=== PATIENT | male | born 1970 | race Caucasian/White ===

== ENCOUNTER → 2017-02-04 | Outpatient (CLI) | payer OTHER ==
[~2017-02-04] MED LIST: CLX/20 PO; GABA1CAP4 PO; GLC500 PO; GLIM2TAB2 PO; HYDR-5688 PO; LPD600 PO; ULT50X PO
[2017-02-04 17:29] LABS: HEMATOCRIT 42.7 % (42-52); MEAN CORPUSCULAR HEMOGLOBIN 30.8 pg (25-34); MEAN CORPUSCULAR HGB CONC 35.4 g/dl (32-36); MEAN PLATELET VOLUME 9.5 fL (7.4-10.4); PLATELET COUNT 278 K/uL (130-400); RED BLOOD COUNT 4.91 M/uL (4.7-6.1); WHITE BLOOD COUNT 6.72 K/uL (4.8-10.8)
[2017-02-04 17:47] LABS: ALT/SGPT 32 U/L (12-78); AST/SGOT 20 U/L (15-37); BLOOD UREA NITROGEN 13 mg/dl (7-18); BUN/CREATININE RATIO 12.7 (10-20); CALCIUM 8.9 mg/dl (8.5-10.1); CARBON DIOXIDE 25 mmol/L (21-32); CHLORIDE 100 mmol/L (98-107); CHOLESTEROL 152 mg/dl (0-200); CREATININE 1.04 mg/dl (0.60-1.40); GLUCOSE 213 mg/dl (70-99); POTASSIUM 4.1 mmol/L (3.5-5.1); SODIUM 134 mmol/L (136-145)
[2017-02-04 17:58] LABS: ALB/GLOB RATIO 1.2 (0.9-2); ALKALINE PHOSPHATASE 85 U/L (45-117); HDL CHOLESTEROL 38 mg/dl; LDL CHOLESTEROL CALCULATED 43 mg/dl; TRIGLYCERIDES 354 mg/dl (0-150); VERY LOW DENSITY LIPOPROT CALC 71 mg/dl
[2017-02-04 18:29] LABS: RATIO 16.7 mcg/mg (0-30.0)
[2017-02-05 06:02] LABS: ESTIMATED AVERAGE GLUCOSE 232 mg/dl; HA1C FLAG Normal (Normal)
== END | disposition home or self-care (01) ==
LOC: C.LABBFT 13:17
PROVIDERS: ATTEND Internal Medicine
DX: E11.9 Type 2 diabetes mellitus without complications (principal)

== ENCOUNTER 2019-09-20 06:54 | Observation (INO) ==
--- NOTE | 2019-08-31 15:12 | Anesthesiology Consultation ---
Date of Service August 31, 2019 Assessment & Plan (1) Encounter for pre-operative examination: Chart Review Chart Review: Acceptable Risk for Surgery and Patient NOT seen in Pre Admission Testing Left Shoulder Arthroscopy 01/11/16= Done under GA- Grade 2 view with Glidescope #4. ETT #8.0. History Surgery Operation Date: 09/20/19 07:00 Proposed Procedures p Bilateral Total Knee Replacement - Jer Gallegos MD Height/Weight Height: 6 ft 3 in Weight: 143.335 kg Allergies Allergy/AdvReac Type Severity Reaction Status Date / Time adhesive tape Allergy Intermediate skin Verified 08/22/19 10:58 reaction bee venom protein (honey bee) Allergy Intermediate SEVERE Verified 08/22/19 10:58 NAUSEA, DIZZY chlorhexidine Allergy Intermediate blisters Verified 08/22/19 10:58 Medications Home Medications Medication Instructions Recorded Confirmed Last Taken dulaglutide 1.5 mg/0.5 mL 1.5 mg SQ WEEKLY #2 ml 01/27/19 08/22/19 Unknown subcutaneous pen injector gemfibrozil 600 mg tablet 600 mg PO BID #180 tab 04/11/19 08/22/19 Unknown diclofenac sodium 75 mg 75 mg PO BID #60 tab 04/22/19 08/22/19 Unknown tablet,delayed release blood sugar diagnostic #10 ea 05/20/19 08/22/19 Unknown buspirone 10 mg tablet 10 mg PO QAM tab 07/21/19 08/22/19 Unknown gabapentin 300 mg capsule 600 mg PO BID #180 cap 08/01/19 08/22/19 Unknown duloxetine 30 mg PO QAM 08/02/19 08/22/19 Unknown duloxetine 60 mg PO QAM 08/02/19 08/22/19 Unknown Basaglar KwikPen U-100 Insulin 100 30 units SQ DAILY #15 ml NS 08/05/19 08/22/19 Unknown unit/mL (3 mL) subcutaneous Wheeled Walker #1 ea 08/22/19 08/22/19 Unknown empagliflozin 10 mg tablet 10 mg PO HS #90 tab 08/29/19 Unknown Past Medical History Medical History Anxiety and depression Degenerative arthritis of knee, bilateral Degenerative disc disease Diabetes mellitus, type 2 High triglycerides History of skin cancer Post traumatic stress disorder RELATED TO BACK SURGERY "RELATED TO BREATHING TUBE AND AWARENESS/COMBATIVE" Sleep apnea CPAP DEVICE Past Family History Family History Mother Cancer Diabetes Malignant melanoma Aunt Cancer Malignant melanoma Father Generalized anxiety disorder Family/Other Diabetes Uncle Obstructive sleep apnea, adult Brother Benign adenomatous polyp of large intestine Other Heart disease Hyperlipemia Hypertension Skin cancer Past Surgical History Surgical History Difficult airway for intubation WAS TOLD DURING ONLY 1 BACK SURGERY (NEVER HAD PROBLEMS WITH ALL OTHER SURGERIES) Family history of reaction to anesthesia MOTHER-N/V Fusion of spine LUMBAR AREA (TOTAL OF 4 SURGERIES) History of appendectomy History of arthroscopy RT/LEFT KNEE History of back surgery History of colonoscopy History of incision and drainage LUMBAR SPINE History of knee surgery History of shoulder surgery LEFT History of tooth extraction Hx of vasectomy S/P skin biopsy Social History Smoking Status: Never smoker Do You Dip or Chew Tobacco: No Hx Alcohol Use: Yes Alcohol type: beer alcohol intake frequency: holidays/special occasions only Hx Substance Use: No substance use type: does not use Testing Laboratory Results Laboratory Tests 08/22/19 08/22/19 08/22/19 11:51 11:51 11:51 WBC 7.61 Hgb 16.9 Hct 47.4 Plt Count 218 PT 10.3 INR 1.0 APTT 26.5 Sodium 140 Potassium 4.4 Chloride 107 Carbon Dioxide 27 BUN 17 Creatinine 1.10 Glucose 164 H Hemoglobin A1c 08/22/19 11:51 WBC Hgb Hct Plt Count PT INR APTT Sodium Potassium Chloride Carbon Dioxide BUN Creatinine Glucose Hemoglobin A1c 6.2 H Electrocardiogram Date: 08/22/19 Findings: + NSR @ (99) Nondiagnostic inferior Q waves. When compared to EKG from November 06, 2017, criteria for inferior infarct are no longer present. Otherwise no significant change per cardio Chest X-Ray Date: 08/22/19 Findings: + NAD Stress Test Date: 01/04/16 Type: exercise (Stress ECHO ) Resting EF: 55-60% Resting LV Function: normal Resting RWMA: + none Valvular Disease: no significant valvular disease Negative stress ECHO for myocardial ischemia at 88% MPHR. Normal EKG/ECHO response to stress. Mild/concentric LVH. RV- mild to moderately dilated. LA moderately dilated. RA mildly dilated.
[~2019-09-20 06:54] MED LIST changes: +ACETAMINOPHEN 500 MG TAB PO SCH; +BUPIVACAINE LIPOSOME/PF 266 MG, BUPIVACAINE/EPINEPHRINE 50 ML, SODIUM CHLORIDE 0.9% 30 ... INFIL SCH; +CEFAZOLIN 3000MG 72.5 ML IV SCH; -CLX/20 PO; +FAMOTIDINE 20 MG TAB PO SCH; -GABA1CAP4 PO; +GABAPENTIN 900 MG DOSE PO SCH; -GLC500 PO; -GLIM2TAB2 PO; -HYDR-5688 PO; -LPD600 PO; +LR 500ML BOLUS, THEN 15ML/HR IV SCH; +LR 60ML/HR IV SCH; +METOCLOPRAMIDE HCL 10 MG TABLET PO SCH; +SCOPOLAMINE 1.5 MG TDSY TD SCH; +TRANEXAMIC ACID 1,000 MG **IV Intra-op IV SCH; -ULT50X PO
[2019-09-20] MEDS ORDERED: fentaNYL citrate 100 MCG/2 ML VIAL ONE ×2 (07:05→11:45)
[2019-09-20] MEDS ORDERED: MIDAZOLAM HCL 1 MG/ML 2ML VIAL ONE ×2 (07:05→10:23)
[2019-09-20] MEDS ORDERED: BUPIVACAINE 0.25% 30 ML VIAL ONE (07:32)
[2019-09-20] MEDS ORDERED: BUPIVACAINE 0.5 % 5 MG/1 ML PF 10ML VIAL ONE (07:32)
[2019-09-20] MEDS ORDERED: ONDANSETRON INJ 2 MG/ML 2 ML VIAL IV PRN ×2 (08:36→13:42)
[2019-09-20] MEDS ORDERED: ATROPINE SULFATE 0.1 MG/ML 10ML SYR IV PRN (08:36)
[2019-09-20] MEDS ORDERED: ePHEDrine sulfate 50 MG/ML AMP IV PRN (08:36)
[2019-09-20] MEDS ORDERED: fentaNYL citrate 100 MCG/2 ML VIAL IV PRN (08:36)
[2019-09-20] MEDS ORDERED: SODIUM CHLORIDE 0.9% PF 50 ML VIAL ONE (08:43)
[2019-09-20] MEDS ORDERED: BUPIVACAINE/EPINEPHRINE 0.25% 1:200,000 30 ML VIAL ONE (08:43)
[2019-09-20] MEDS ORDERED: BUPIVACAINE LIPOSOME 1.3% 266 MG/20 ML VIAL ONE (08:44)
[2019-09-20] MEDS ORDERED: BACITRACIN INJ 50,000 UNIT VIAL ONE ×2 (08:44→09:03)
--- NOTE | 2019-09-20 08:45 | History & Physical Bridge Note ---
Date of Service September 20, 2019 History & Physical Bridge Note I have examined the patient, reviewed the History & Physical and in the interval since the performance of the History & Physical I have noted the following changes of clinical significance: no changes noted
[2019-09-20] MEDS ORDERED: PROPOFOL IV EMULSION 10 MG/ML 20 ML VIAL IV ONE ×3 (09:15→10:55)
--- NOTE | 2019-09-20 12:39 | Post Operative Brief Note ---
PG Immediate Post Op with CF Date of Surgery September 20, 2019 Pre & Post Diagnosis Operation Date: 09/20/19 08:50 Pre-Op Diagnosis: Bilateral Knee Degenerative Joint Disease Post-Op Diagnosis: Bilateral Knee Degenerative Joint Disease I identified the patient and participated in the time-out.: Yes Procedure Operation Date: 09/20/19 08:50 Actual Procedures p Bilateral Total Knee Replacement(Bilateral) - Jer Gallegos MD Surgeon Jer Gallegos MD Spooler Rubber Strand Zeke, PAC Estimated Blood Loss 100 Findings Consistent with Post-Op Diagnosis Fluids 1500 cc Specimens Specimen Description: Permanent A: Left Knee Bone and Tissue B: Right Knee Bone and Tissue Drains Ellison Catheter (inserted by Cali Alanis PA-C after anesthesia prior to start of procedure without difficulty) Anesthesia Type Spinal MAC Complications none Disposition Accompanied Patient To Recovery: Yes Disposition: Recovery Room
--- NOTE | 2019-09-20 13:14 | XRay Report ---
XR knee RT 1 or 2V routine CLINICAL HISTORY: Surgical Post Op postoperative evaluation COMPARISON: None. DISCUSSION: Anatomic alignment posttotal right knee arthroplasty. Could contact between prosthetic an d underlying bone. Expected postoperative soft tissue change. IMPRESSION: Anatomic alignment posttotal right knee arthroplasty. ACT 112: Negative or not required by law. The above report was generated using voice recognition software. It may contain grammatical, syntax or spelling errors. Electronically signed by: Graeme Burgess M.D. 09/20/2019 1:13 PM
--- NOTE | 2019-09-20 13:15 | XRay Report ---
LEFT KNEE 2 VIEWS History: Left total knee arthroplasty. Degenerative arthritis. Postop. FINDINGS: The patient is status post a left total knee arthroplasty. The hardware is intact. No fract ure or dislocation. Skin bev are in place. IMPRESSION: Left total knee arthroplasty. No evidence for hardware complication. ACT 112: Negative or not required by law. Electronically signed by: Andrew Ornelas M.D. 09/20/2019 1:13 PM
[2019-09-20] MEDS ORDERED: PNEUMOCOCCAL POLYSACCHARIDES 25 MCG/0.5 ML VIAL/SYR IM ONE (13:41)
[2019-09-20] MEDS ORDERED: INFLUENZA ADMINISTRATION CHARGE ONE (13:41)
[2019-09-20] MEDS ORDERED: PNEUMOCOCCAL ADMINISTRATION CHARGE ONE (13:41)
[2019-09-20] MEDS ORDERED: INFLUENZA VIRUS QUAD VACCINE 0.5 ML SYR IM ONE (13:41)
[2019-09-20] MEDS ORDERED: DEXTROSE 50% 50 ML SYRINGE IV PRN (13:42)
[2019-09-20] MEDS ORDERED: METOCLOPRAMIDE HCL INJ 5 MG/ML 2 ML VIAL IV PRN (13:42)
[2019-09-20] MEDS ORDERED: TAMSULOSIN HCL 0.4 MG CAP PO PRN (13:42)
[2019-09-20] MEDS ORDERED: bisacodyL 10 MG SUPP PR PRN (13:42)
[2019-09-20] MEDS ORDERED: BLOOD SUGAR DIAGNOSTIC SCH (13:42)
[2019-09-20] MEDS ORDERED: GLUCAGON FOR INJ 1 MG VIAL SQ PRN (13:42)
[2019-09-20] MEDS ORDERED: MAGNESIUM HYDROXIDE SUSP 30 ML UDC PO PRN (13:42)
[2019-09-20] MEDS ORDERED: GLUCOSE 40% GEL 15 GM TUBE PO PRN (13:42)
[2019-09-20] MEDS ORDERED: GLUCOSE 10 TABS/TUBE PO PRN (13:42)
[2019-09-20] MEDS ORDERED: SODIUM CHLORIDE 0.9% 1000ML 1,000 ML IV SCH (13:42)
[2019-09-20] MEDS ORDERED: NON-FORMULARY MEDICATION (Dulaglutide [Trulicity] 1.5 MG) SQ SCH (13:42)
[2019-09-20] MEDS ORDERED: CARBOHYDRATES FOR HYPOGLYCEMIA PO PRN (13:42)
[2019-09-20] MEDS ORDERED: ALUMINUM/MAGNESIUM SUSP 30 ML UDC PO PRN (13:42)
[2019-09-20] MEDS ORDERED: NALOXONE HCL 0.4 MG/1 ML VIAL/CARP IV PRN (13:42)
[2019-09-20] MEDS ORDERED: PHARMACY GLYCEMIC MGMT CONSULT PRN (14:11)
[2019-09-20] MEDS: INSULIN ASPART 100 UNITS/ML 3 ML PEN SC SCH ×2 (14:48→21:19)
--- NOTE | 2019-09-20 14:55 | Anesthesiology Progress Note ---
Date of Service September 20, 2019 Anesthesia Post Procedure Vital Signs Vital Signs: Temp Pulse Pulse Resp BP Pulse Ox 09/20/19 14:25 97.9 F 84 16 144/91 H 97 09/20/19 13:50 97.5 F L 66 16 114/79 93 09/20/19 13:27 97.3 F L 81 18 120/83 97 09/20/19 13:05 98.8 F 67 16 122/81 94 09/20/19 12:55 98.8 F 76 17 119/84 93 09/20/19 12:45 70 20 127/80 93 09/20/19 12:35 98.1 F 81 14 121/83 98 09/20/19 07:25 99.0 F 93 H 20 141/98 H 94 Transfer of Care Handoff Completed per policy Notes Mental Status: alert / awake / arousable and participated in evaluation Patient Amnestic to Procedure: Yes Nausea / Vomiting: adequately controlled Pain: adequately controlled Airway Patency, RR, SpO2: stable & adequate BP & HR: stable & adequate Hydration State: stable & adequate Neuraxial Anesthesia: was administered and sensory block is resolving Anesthetic Complications: no major complications apparent and Pt Satisfied with anesthetic care
--- NOTE | 2019-09-20 15:06 | Pharmacy Report ---
Pharmacy Glycemic Short Note 2 - Date of Service September 20, 2019 - Glycemic Short BSG Results (Last 24 hours): 09/20/19 09/20/19 09/20/19 07:13 12:38 13:56 POC Glucose 139 H 109 H 120 H OUTPATIENT ANTIDIABETIC REGIMEN: * Insulin Basaglar 36 units SQ qHS * Jardiance * Trulicity * HbA1c: 6.2% (08/22/19) ASSESSMENT: * Mr Hawley is a 49yo diabetic male POD 0 s/p B/L TKA. * It does not appear as though patient received any steroids barbra-operatively. Pt is ordered Ancef. * Patient is ordered a diabetic diet post-op. * Patient ordered Novolog on admission, while oral agents are on hold. PLAN FOR INPATIENT GLYCEMIC CONTROL: * Hold outpatient oral diabetes medications * Basal insulin * Lantus 36 units SQ qHS * Bolus insulin * NovoLog per scale ACHS or Q6hrs while NPO * Goal Range: Low 120 mg/dL - High 150 mg/dL * Correction Factor: 20 mg/dL/unit * Nutritional / Prandial insulin per carb ratio of 1 unit per 7 grams CHO consumed PLAN FOR DISCHARGE: * Recent A1c indicates good glycemic control as an outpatient. * Anticipate that pt may resume home regimen on discharge, as long as he does not report having episodes of hypoglycemia.
[2019-09-20] MEDS: KETOROLAC 30 MG/ML VIAL IV SCH ×2 (15:10→21:15)
[2019-09-20] MEDS: ACETAMINOPHEN 500 MG TAB PO SCH ×2 (15:10→21:15)
[2019-09-20] MEDS: CHECK SCOPOLAMINE PATCH PLACEMENT SCH (15:11)
--- NOTE | 2019-09-20 15:49 | Progress Notes ---
DATE: 09/20/2019 SUBJECTIVE: A 49-year-old gentleman postop from bilateral knee replacement. He is doing pretty well. His spinal is slowly wearing off, but does not have any sensation or function in his legs yet. No chest pain or shortness of breath. Not feeling dizzy or lightheaded. OBJECTIVE: VITAL SIGNS: Temperature 36.8. Vital signs are stable. GENERAL: Reveals a large middle-aged male. He is lying in bed, looks pretty comfortable. LUNGS: Clear to auscultation. HEART: Has a regular rate and rhythm. ABDOMEN: Soft, nontender, nondistended. EXTREMITIES: Grossly neurovascularly intact except as follows: Examination of both legs reveals the legs to be well aligned. Dressings are clean, dry, and intact. He has no significant sensory or motor function below the knees yet. He does have brisk refill with good pulses distally on both sides. X-RAYS: X-rays of both knees from recovery room are reviewed. It shows bilateral cemented posterior stabilized total knee arthroplasties. Fairly rotated films. Components looked to be in acceptable position without signs of obvious problems. ASSESSMENT: A 49-year-old gentleman postoperative from bilateral knee replacements, doing well. Spinal is still in effect. His pain is controlled. PLAN: 1. DVT prophylaxis including thigh-high TEDs, SCDs, and aspirin twice a day. 2. PT/OT. Weight bear as tolerated. Bilateral total knee protocol. 3. Pain control, doing okay with current pain regimen. We will obviously have to adjust his meds as his spinal wears off. The plan currently is to use Tylenol, Toradol, Dilaudid as needed. 4. IV antibiotics x24 hours. 5. Disposition: He is planning to be discharged to home with some home health once adequately recovered and medically stable.
--- NOTE | 2019-09-20 17:24 | Operative Report ---
Post Operative Report Pre & Post Diagnosis Operation Date: 09/20/19 08:50 Pre-Op Diagnosis: Bilateral Knee Degenerative Joint Disease Post-Op Diagnosis: Bilateral Knee Degenerative Joint Disease I identified the patient and participated in the time-out.: Yes Procedure Operation Date: 09/20/19 08:50 Actual Procedures p Bilateral Total Knee Replacement(Bilateral) - Jer Gallegos MD Surgeon Jer Gallegos MD Flat Optical Element Maker Zeke, PAC Estimated Blood Loss 100 Findings Consistent with Post-Op Diagnosis Operative findings revealed advanced of bilateral knee DJD. Extensive grade 4 [id number] disease of the medial compartment in both knees as well as the patellofemoral compartments. He had fixed varus deformity to both knees. The lateral compartments were pretty well-preserved. He did have fairly large knee effusions in both knees as well. He had osteophytes in the medial compartment bilaterally. Fluids 1500 cc. Specimens Bilateral knee sent for pathology. Drains None. Anesthesia Type Spinal MAC Complications none Disposition Accompanied Patient To Recovery: Yes Disposition: Recovery Room Indications Patient is a 49-year-old very active gentleman is had a long history of knee problems. He had undergone knee arthroscopy 15 years ago in both knees. Over the past 5 to 10 years he is developed increased pain discomfort and deformity in both knees. He has been through extensive conservative treatment over the past 5 years but his pain becomes significantly debilitating where he was trouble even getting around and walking any distance over a block. He limps constantly. He failed all conservative care. X-rays showed advanced knee arthritis bilaterally. He elected proceed with total knee arthroplasty. Description of Procedure Operative implants consist of: Left side implants consist of: 1. Biomet Vanguard size 75 left posterior stabilized femoral component. 2. Biomet size 83 tibial tray. 3. 12 mm posterior stabilized polyethylene insert. 4. 34 x 8-1/2 all poly-patella. Right side implants consist of: 1. Biomet Vanguard size 75 right posterior stabilized femoral component. 2. Biomet size 83 tibial tray. 3. 12 mm posterior stabilized polyethylene insert. 4. 34 x 8 and half all poly-patella. Patient was taken to the operating room identified and placed on the operating table supine position. All contractors were properly padded. IV antibiotics were provided by anesthesia team. A spinal anesthetic and abductor canal blocks were provided in the holding area. Ellison catheter was placed in sterile fashion. Bilateral thigh tourniquets were then placed in both lower extremities and prepped and draped in usual sterile fashion. Attention was first drawn the left leg. The left leg was elevated and exsanguinated with use of an Esmarch and a tourniquet was placed at 300 mmHg. An anterior posterior left knee was then performed to longitudinal incision centered over the patella. Sharp dissection was gone through subcutaneous this down over the extensor mechanism. A medial parapatellar arthrotomy incision was made. Some subperiosteal dissection was carried out medially. The fat pad was resected from each patella tendon. The lateral patellofemoral ligament was released. Patella was subluxated laterally and the knee was flexed. The osteophytes were taken off the distal femur. The ACL and PCL were then released from the distal femur and the tibia was subluxated anteriorly. The external tibial alignment jig was then placed in the interface the tibia and adjusted 14 mm medially. Proximal tibial cut was made to move out a millimeter from the most efficient aspect medial tibial plateau. Some osteophytes taken off medial and posterior medially. The tibia sized to a size 83. Attention drawn the femur. The distal femur stem with a sharp drop with intramedullary canal was suction. A left 6 degree valgus cutting guide was placed. This femoral cutting block was pinned in place. Distal femoral cut was made to take an additional 3 mm of bone off distal femur. The femur was then sized to a size 75. The AP cutting block was pinned parallel to the epicondylar axis which was 4 degrees of external rotation. The anterior cut, anterior chamfer, posterior cut, posterior chamfer cuts were made. Box cutting guide was placed in a just slight lateral and the box cut was made. The knee was flexed. The remnants of the medial and lateral menisci were excised. The osteophytes were taken off the posterior aspect of the femur. A trial femoral component was placed. The tibial tray was pinned in maximum external rotation and the drill and stem punch were used to create defect in proximal tip for the tibial tray. Knee was then trialed and 12 mm insert fit most appropriately. Attention drawn the patella. The patella was cleaned of all soft tissues. Patella thickness measured 24 mm in thickness was cut down to 14. Was sized to a size 34 patella. The locals were drilled for 34 patella. Lateral osteophyte is moved. Patella button was placed. Knee was taken through range of motion patella tracked nicely with no thumbs test. Attention drawn to placing the permanent components. Trial components were removed. A bone plug was placed in the disc femur limit blood loss put a double batch Palacos G cement was mixed. A Biomet Vanguard size 75 left posterior by femoral component, size 83 tibial tray, a 12 mm posterior box polyethylene insert, and a 34 by a Kylie all poly-patella were then cemented in place. The knee was brought out into full extension total cement hardened. Final cement check was then performed. The pericapsular tissues were injected with a total of 50 cc of a combination of 10 cc of Exparel, 15 cc of normal saline, and 25 cc of half percent Marcaine with epinephrine. The patient did receive 1 g of tranexamic acid. The tourniquet was then let down for final tourniquet time of 63 minutes. Hemostasis assured use electrocautery. The wound was once again irrigated. The extensor mechanism then closed with a comb ination 1 PDS suture #1 Vicryl suture in [id number] fashion. Extensor mechanism was checked and found to be intact with subcutaneous tissue then closed with 2 Dexon suture in a buried interrupted fashion skin was closed skin bev. Leg was then cleaned dried a sterile dressing composed of Xeroform, 4 x 4's, sterile cast padding and Joey bandage were applied. After repair of the extensor mechanism on the left leg a similar procedure was begun on the right leg. The right leg was elevated and exsanguinated with use of an Esmarch and turns placed at 300 mmHg. An anterior approach of the right knee was then performed to longitudinal incision centered over the patella. Sharp dissection was gone through subcutaneous tissue down to the extensor mechanism. A medial parapatellar arthrotomy incision was made. Some subperiosteal dissection was carried out medially. The fat pad was resected from each patella tendon. The lateral patellofemoral ligament was released. Patella was subluxated laterally and the knee was flexed. The osteophytes were taken off the distal femur. The ACL and PCL were then released from distal femur the tibia subluxate anteriorly. The external tibial alignment jig was then placed in the interface the tibia and adjusted 14 mm medially. Proximal tibial cut was made to move about a millimeter bone from the most efficient aspect the medial tibial plateau. Some osteophytes were taken off medial and posterior medially. The tibia was sized to a size 83. Attention drawn the femur. The distal femur returned with a sharp drop with intramedullary canal was suction. A right 6 degree valgus cutting guide was placed. Distal femoral cutting block was pinned in place and the distal femoral cut was made. The femur was then sized to a size 75. The AP cutting block was pinned parallel to the epicondylar axis which was 4 degrees of external rotation. The anterior cut, anterior chamfer, posterior cut, posterior chamfer cuts were made. Box cutting guide was placed in just slight lateral and the box cut was made. The knee was flexed. The remnants of the medial lateral menisci were excised. The osteophytes were taken off the posterior aspect of the femur. Trial femoral component was placed. The tibial tray was pinned in maximum external rotation and the drill and stem punch were used to create defect in proximal tip for the tibial tray. Knee was then trialed and the 12 mm insert fit most appropriately. Attention drawn the patella. The patella was cleaned of all soft tissues. Patella thickness measured 23 mm in thickness and was cut down to 14. Was sized to a size 34 patella. Locals were drilled for 34 patella. Lateral osteophyte is moved. Patella button was placed. Knee was taken through range of motion and the patella tracked nicely with no thumbs test. Attention drawn to placing the permanent components. All trial components were removed. A bone plug was placed in the disc femur limit blood loss. A double batch Palacos G cement was mixed. A Biomet Vanguard size 75 right posterior by femoral component, size 83 tibial tray, 12 mm posterior box polyethylene insert, and a 34 x 8 and half all poly-patella then cement in place. Knees brought out in full extension total cement hardened. Final cement check was then performed. The pericapsular tissues were injected with total 50 cc of a combination of 10 cc of Exparel, 15 cc of normal saline, 25 cc of half percent Marcaine with epinephrine. The tourniquet was then let down for turn time 68 minutes. Hemostasis assured use electrocautery. The wounds once again irrigated. Extensor mechanism then closed with a combination 1 PDS suture #1 Vicryl suture in a [id number] fashion. Extensor mechanism checked and found to be intact with the subcutaneous tissue then closed with 2 Dexon suture in a buried interrupted fashion skin was closed skin bev. Leg was then cleaned dried a sterile dressing composed Xeroform, 4 x 4's, sterile cast padding and Joey bandage were applied. We then took down the drapes to the other side as well and placed additional sterile cast padding and Joey bandage over the left leg. The patient was then transferred to the recovery room in stable condition. Patient tolerated procedure well no complications. I attest to the content of the Intraoperative Record and any orders documented therein. Any exceptions are noted below.
[2019-09-20] MEDS: ASCORBIC ACID 500 MG TAB PO SCH (17:50)
[2019-09-20] MEDS: FERROUS GLUCONATE 324 MG TAB PO SCH (17:50)
[2019-09-20] MEDS: CEFAZOLIN 2000MG 2,000 MG/15 ML SYR IV SCH (17:51)
[2019-09-20] MEDS: HYDROmorphone INJ 0.5 MG/0.5 ML SYR IV PRN ×2 (18:17→22:25)
[2019-09-20] MEDS ORDERED: TRANEXAMIC ACID / 0.7% NACL 1,000 MG/100 ML BAG IV SCH (19:00)
[2019-09-20] MEDS: TAPENTADOL HCL ER 50 MG TABCR PO SCH (20:16)
[2019-09-20] MEDS ORDERED: NON-FORMULARY MEDICATION (Empagliflozin [Jardiance] 10 MG) PO SCH (21:00)
[2019-09-20] MEDS: GABAPENTIN 600 MG TAB PO SCH (21:15)
[2019-09-20] MEDS: gemfibroziL 600 MG TAB PO SCH (21:15)
[2019-09-20] MEDS: DOCUSATE SODIUM 100 MG CAP PO SCH (21:15)
[2019-09-20] MEDS: ASPIRIN 81 MG ECTAB PO SCH (21:15)
[2019-09-20] MEDS: SENNA 8.6 MG TAB PO SCH (21:15)
[2019-09-20] MEDS: INSULIN GLARGINE SOLOSTAR 100 UNITS/ML 3 ML PEN SQ SCH (21:20)
[2019-09-21] MEDS: HYDROmorphone INJ 0.5 MG/0.5 ML SYR IV PRN ×2 (00:08→07:25)
[2019-09-21] MEDS: CHECK SCOPOLAMINE PATCH PLACEMENT SCH ×3 (00:08→15:50)
[2019-09-21] MEDS: CEFAZOLIN 2000MG 2,000 MG/15 ML SYR IV SCH (03:18)
[2019-09-21] MEDS: KETOROLAC 30 MG/ML VIAL IV SCH ×4 (03:18→21:12)
[2019-09-21 06:02] LABS: Hemoglobin 13.1 g/dL (14.0-18.0); Mean Corpuscular Hemoglobin 30.9 pg (25-34); Mean Corpuscular Hgb Conc 35.4 g/dL (32-36); Mean Corpuscular Volume 87.3 fL (80-100); Mean Platelet Volume 8.9 fL (7.4-10.4); Platelet Count 234 K/uL (130-400); RDW Coefficient of Variation 12.4 % (11.5-14.5); RDW Standard Deviation 39.8 fL (36.4-46.3); Red Blood Count 4.24 M/uL (4.7-6.1); White Blood Count 13.38 K/uL (4.8-10.8)
[2019-09-21] MEDS: ACETAMINOPHEN 500 MG TAB PO SCH ×3 (06:15→21:13)
[2019-09-21 06:30] LABS: Calcium 8.6 mg/dl (8.5-10.1); Creatinine Clr Calc Pharmacy 128.8 ml/min; Est GFR (African American) 92.2; Est GFR (Non-African American) 79.5; Potassium 4.1 mmol/L (3.5-5.1)
[2019-09-21] MEDS: FERROUS GLUCONATE 324 MG TAB PO SCH ×2 (08:31→17:57)
[2019-09-21] MEDS: ASCORBIC ACID 500 MG TAB PO SCH ×2 (08:31→17:57)
[2019-09-21] MEDS: DOCUSATE SODIUM 100 MG CAP PO SCH ×2 (08:32→20:08)
[2019-09-21] MEDS: DULOXETINE HCL 60 MG CAP PO SCH (08:32)
[2019-09-21] MEDS: ASPIRIN 81 MG ECTAB PO SCH ×2 (08:32→20:08)
[2019-09-21] MEDS: GABAPENTIN 600 MG TAB PO SCH ×2 (08:32→20:07)
[2019-09-21] MEDS: MULTIVITAMIN TAB PO SCH (08:32)
[2019-09-21] MEDS: gemfibroziL 600 MG TAB PO SCH ×2 (08:32→20:07)
[2019-09-21] MEDS: DULOXETINE HCL 30 MG CAP PO SCH (08:35)
[2019-09-21] MEDS: INSULIN ASPART 100 UNITS/ML 3 ML PEN SC SCH ×4 (08:37→21:10)
[2019-09-21] MEDS: TAPENTADOL HCL ER 50 MG TABCR PO SCH ×2 (08:42→21:09)
[2019-09-21] MEDS: HYDROmorphone HCL 2 MG TAB PO PRN ×2 (09:59→19:51)
[2019-09-21] MEDS ORDERED: HYDROmorphone INJ 0.5 MG/0.5 ML SYR IV PRN (11:46)
--- NOTE | 2019-09-21 12:12 | Progress Notes ---
DATE: 09/21/2019 SUBJECTIVE: A 49-year-old gentleman postop day 1 from bilateral knee replacement. He is doing pretty well. He is still having quite a bit of pain despite the pain medicines. Denies any chest pain or shortness of breath. Not feeling dizzy or lightheaded. OBJECTIVE: VITAL SIGNS: Temperature 36.9. Vital signs stable. GENERAL: Shows a pleasant, middle-aged male. He is sitting up in bed, looks reasonably comfortable currently. EXTREMITIES: Examination of both legs reveals the dressings to be clean and dry and intact. Leg lengths are equal. Legs are well aligned. He can dorsiflex and plantar flex his feet on both sides appropriately. He is neurologically intact. LABORATORY DATA: Hemoglobin is 13.1. Hematocrit 37.0. White cell count is slightly elevated at 13.38. Electrolytes are stable. ASSESSMENT: A 49-year-old gentleman postoperative day 1 from bilateral knee replacements, doing reasonably well. Still having a significant amount of pain, particularly with therapy, which is not too unexpected. He is a very large gentleman. We will try and adjust his medications to get him a little bit more comfortable. PLAN: 1. DVT prophylaxis including thigh-high TEDs, SCDs, and aspirin twice a day. 2. PT/OT. He can weightbear as tolerated. Bilateral total knee protocol. 3. Pain control. We are going to continue with the [id number] and Toradol and Tylenol. He will get p.o. Dilaudid and I will write for a little bit higher dose of IV Dilaudid if needed. 4. Disposition: The plan is to discharge to home with some home health once medically stable and the pain is under control.
--- NOTE | 2019-09-21 14:02 | Pharmacy Report ---
Glycemic Control Progress Note - Date of Service September 21, 2019 - Scope Glycemic Pharmacist consulted for glycemic control to write orders per [facility] inpatient glycemic control protocol. - Objective Accuchecks BSG(last 24 hours):: 09/20/19 09/20/19 09/21/19 13:56 20:33 05:43 Glucose 186 H POC Glucose 120 H 212 H 09/21/19 09/21/19 08:10 12:53 Glucose POC Glucose 193 H 185 H - Recent Pertinent Medications The patient is currently receiving: * Basal insulin: Lantus 36 units every 24 hours * Correctional Insulin: Novolog Correction per scale ACHS Goal Range: Low 110 mg/dL - High 140 mg/dL Correction Factor: 20 mg/dL/unit * Prandial insulin: Per carb ratio of 1 unit per 6 grams CHO consumed - Outpatient Anti-Diabetic Meds BASALGAR 36 UNITS HS JARDIANCE TRULICITY - Assessment & Plan ASSESSMENT: * See progress note from 09/20/2019 for more background info, in short: * Pt receiving SQ basal bolus insulin regimen for hyperglycemia secondary to baseline DM (outpatient regimen on hold) and POD 1 for bilateral TKAs. * Patient is currently receiving an average of 44 units of insulin per day * 36 units of basal insulin * 8 units of prandial/correctional insulin * BSGs ranging 109 - 212 mg/dl over the past 24hrs (only 1 BSG over goal r radha) * Changes needed to insulin regimen: * AM Fasting BSG = 193 mg/dl. This is above goal range for patient based on inpatient targets and co-morbidities. Will continue with basal insulin at this dose as it is the patient's home dose. Most likely patient did not take full dose prior to surgery. If fasting continues to be elevated tomorrow will increase dose. * Post-prandial BSGs are starting to trend downwards (especially since lunch BSG was after eating). Tightened carbohydrate ratio for breakfast and lunch but will loosen here for dinner since patient's Lantus is back to normal dosing. * Total daily dose = ~60 units. PLAN FOR INPATIENT GLYCEMIC CONTROL: * Continuing Lantus 36 units HS units SQ BID * Continuing correction factor of 20 mg/dl/unit * Continuing carb ratio of 1 unit per 7 grams CHO consumed * Continuing goal range of Low 110 mg/dL - High 140 mg/dL RECOMMENDATIONS FOR DISCHARGE: * see note from 09/20/2019 Thank you.
[2019-09-21] MEDS: SENNA 8.6 MG TAB PO SCH (20:07)
[2019-09-21] MEDS: INSULIN GLARGINE SOLOSTAR 100 UNITS/ML 3 ML PEN SQ SCH (21:11)
[2019-09-22] MEDS: CHECK SCOPOLAMINE PATCH PLACEMENT SCH (01:07)
[2019-09-22] MEDS: KETOROLAC 30 MG/ML VIAL IV SCH ×2 (04:15→10:23)
[2019-09-22] MEDS: ACETAMINOPHEN 500 MG TAB PO SCH (06:15)
--- NOTE | 2019-09-22 07:39 | Progress Notes ---
DATE: 09/22/2019 SUBJECTIVE: A 49-year-old gentleman postop day 2 from bilateral knee replacement. He is doing a bit better this morning. Pain seems to be controlled. Had a pretty good night. No chest pain or shortness of breath. Not feeling dizzy or lightheaded. OBJECTIVE: VITAL SIGNS: Temperature is 36.9. Vital signs stable. GENERAL: Shows a pleasant, middle-aged male. He is sitting up in bed, looks pretty comfortable. EXTREMITIES: Examination of both legs revealed legs to be well aligned. Dressings are clean, dry and intact. No significant drainage. He is neurologically intact. ASSESSMENT: A 49-year-old gentleman postop day 2 from bilateral knee replacement, doing pretty well. The pain seems to be better controlled. He is neurologically intact. PLAN: 1. DVT prophylaxis including thigh-high TEDs, SCDs, and aspirin twice a day. 2. PT/OT. Weight bear as tolerated. Bilateral knee protocol. 3. Pain control, doing pretty well with current pain regimen. 4. Disposition: Plan to discharge to home with some home health later today.
[2019-09-22] MEDS: TAPENTADOL HCL ER 50 MG TABCR PO SCH (08:30)
[2019-09-22] MEDS: HYDROmorphone HCL 2 MG TAB PO PRN (08:30)
[2019-09-22] MEDS: MULTIVITAMIN TAB PO SCH (08:31)
[2019-09-22] MEDS: DULOXETINE HCL 30 MG CAP PO SCH (08:32)
[2019-09-22] MEDS: DULOXETINE HCL 60 MG CAP PO SCH (08:33)
[2019-09-22] MEDS: GABAPENTIN 600 MG TAB PO SCH (08:33)
[2019-09-22] MEDS: ASPIRIN 81 MG ECTAB PO SCH (08:33)
[2019-09-22] MEDS: gemfibroziL 600 MG TAB PO SCH (08:33)
[2019-09-22] MEDS: DOCUSATE SODIUM 100 MG CAP PO SCH (08:34)
[2019-09-22] MEDS: ASCORBIC ACID 500 MG TAB PO SCH (08:34)
[2019-09-22] MEDS: FERROUS GLUCONATE 324 MG TAB PO SCH (08:34)
[2019-09-22] MEDS: INSULIN ASPART 100 UNITS/ML 3 ML PEN SC SCH (08:39)
--- NOTE | 2019-09-28 14:11 | Discharge Summary ---
Date of Service September 28, 2019 Admission HPI Per Admitting Provider Documented in the H&P Admission Exam (Per Admitting) Constitutional Documented in the H&P Discharge Data Consultations 09/20/19 13:42 Consult Case Management - Discharge Planning Routine Procedures Performed Operation Date: 09/20/19 08:50 Actual Procedures p Bilateral Total Knee Replacement(Bilateral) - Jer Gallegos MD Hospital Course (1) Status post total bilateral knee replacement: 49-year-old male admitted on 09/20/2019 and underwent bilateral total knee replacement. He tolerated the procedure well. There were no complications. He was transferred to the PACU postoperatively and later to the orthopedic for further care. He was given Ancef for antibiotic prophylaxis. He was given SRIKANTH stockings, SCDs, and aspirin for DVT prophylaxis. His hemoglobin, hematocrit, and vital signs monitored during his hospital stay remained stable. He got quiring blood transfusions. There were no complications. Postoperative day 2 he was tolerating a diabetic diet, his pain was controlled with oral pain medicine, is participating in physical therapy. Postop day 2 was discharged home set up with home health services. He was given printed discharge instruction as well as new prescription structuring Tylenol aspirin and hydromorphone. Continue his home medications. Continue physical therapy. He is weightbearing as tolerated. Continue SRIKANTH stockings. Follow-up in approximately 2 weeks postoperatively or sooner if any problems or concerns. Coding Level of Care Code None Diagnoses Status post total bilateral knee replacement Z96.653
== END 2019-09-22 11:13 | disposition home health service (06) ==
LOC: ASU 06:54 → 3E 06:54

== ENCOUNTER 2020-11-23 10:50 | Observation (INO) ==
--- NOTE | 2020-11-19 09:53 | Anesthesiology Consultation ---
Date of Service November 19, 2020 Assessment & Plan (1) Encounter for pre-operative examination: Chart Review Chart Review: Acceptable Risk for Surgery (pending preop Covid testing result and EKG DOS ) and Patient NOT seen in Pre Admission Testing - Check BSG AM DOS. Will also check EKG stat AM of surgery. Per nursing assessment 11/19/2020, patient denies any recent travel. No known Covid infection in the past 90 days. Patient is vaccinated for Covid. No known Covid positive contacts or Covid related symptoms. Preop Covid testing scheduled 11/21/20= will await results Bilateral TKA 09/20/2019 = done under [facility] at L3-4 with 2 attempts. History Surgery Operation Date: 11/23/20 12:50 Proposed Procedures p Revision Left Tibia Tray - Jer Gallegos MD Height/Weight Height: 6 ft 3 in Weight: 138.799 kg Allergies Allergy/AdvReac Type Severity Reaction Status Date / Time adhesive tape Allergy Intermediate skin Verified 11/19/20 08:32 reaction bee venom protein (honey bee) Allergy Intermediate SEVERE Verified 11/19/20 08:32 NAUSEA, DIZZY chlorhexidine Allergy Intermediate blisters Verified 11/19/20 08:32 Medications Home Medications Medication Instructions Recorded Confirmed Last Taken blood sugar diagnostic (OneTouch #10 ea 05/20/19 11/01/20 09/20/19 07:00 Ultra Blue Test Strip) insulin glargine 100 unit/mL (3 36 unit SQ HS 90 Days #45 ml 04/03/20 11/19/20 Unknown mL) subcutaneous pen (Basaglar KwikPen U-100 Insulin) gabapentin 300 mg capsule 600 mg PO BID #360 cap 04/06/20 11/19/20 Unknown CPAP Supplies See Rx Instructions .ROUTE 05/23/20 11/01/20 Unknown .COMPLEX #1 ea gemfibrozil 600 mg tablet 600 mg PO BID #180 tab 06/18/20 11/19/20 Unknown sildenafil 50 mg tablet 50 mg PO DAILY PRN #14 tab 08/06/20 11/19/20 Unknown dulaglutide 1.5 mg/0.5 mL 1.5 mg SQ WEEKLY #2 ml 09/03/20 11/19/20 Unknown subcutaneous pen injector ([facility]) pen needle, diabetic 32 gauge x #100 ea 09/03/20 11/01/20 Unknown 5/32" (BD Ultra-Fine Madalyn Pen Needle) duloxetine 60 mg capsule,delayed 120 mg PO QAM #180 cap 11/01/20 11/19/20 Unknown release lorazepam 0.5 mg tablet 0.5 mg PO BID PRN #60 tab 11/01/20 11/19/20 Unknown tramadol 50 mg tablet 50 mg PO Q6 PRN #40 tab 11/15/20 11/19/20 Unknown acetaminophen 500 mg tablet 1,000 mg PO Q6H PRN 11/19/20 11/19/20 Unknown diclofenac sodium 75 mg 75 mg PO BID 11/19/20 11/19/20 Unknown tablet,delayed release empagliflozin 25 mg tablet 25 mg PO HS 11/19/20 11/19/20 Unknown (Jardiance) Past Medical History Medical History Anxiety and depression Degenerative disc disease Diabetes mellitus, type 2 High triglycerides History of skin cancer right arm Post traumatic stress disorder RELATED TO BACK SURGERY "RELATED TO BREATHING TUBE AND AWARENESS/COMBATIVE" Sleep apnea recall on CPAP DEVICE, not using any device at present time due to recall. Has had weight loss recently Past Family History Family History Mother Cancer Diabetes Malignant melanoma Aunt Cancer Malignant melanoma Father Generalized anxiety disorder Family/Other Diabetes Uncle Obstructive sleep apnea, adult Brother Benign adenomatous polyp of large intestine Other Heart disease Hyperlipemia Hypertension Skin cancer Past Surgical History Surgical History (Updated 11/19/20 @ 09:47 by Lillie Sorensen PA-C) Difficult airway for intubation WAS TOLD DURING ONLY 1 BACK SURGERY (NEVER HAD PROBLEMS WITH ALL OTHER SURGERIES) Glidescope #4 used with 2016 shoulder surgery without issues Family history of reaction to anesthesia MOTHER-N/V Fusion of spine LUMBAR AREA (TOTAL OF 4 SURGERIES) History of appendectomy History of arthroscopy RT/LEFT KNEE History of colonoscopy History of incision and drainage LUMBAR SPINE History of knee replacement procedure of left knee History of knee replacement procedure of right knee History of shoulder surgery LEFT Done under GA- Grade 2 view with Glidescope #4. ETT #8.0. History of tooth extraction Hx of vasectomy S/P skin biopsy Social History Smoking Status: Never smoker tobacco type: cigars Do You Dip or Chew Tobacco: No Hx Alcohol Use: No Alcohol type: beer alcohol intake frequency: holidays/special occasions only Hx Substance Use: No substance use type: does not use Lab Results Anesthesia Preop Results Results Anesthesia Widget: WBC 8.32 K/uL (4.8-10.8) 11/15/20 Hgb 17.2 g/dL (14.0-18.0) 11/15/20 Hct 47.8 % (42-52) 11/15/20 Plt 312 K/uL (130-400) 11/15/20 Na 138 mmol/L (136-145) 11/15/20 K 3.7 mmol/L (3.5-5.1) 11/15/20 Cl 107 mmol/L (98-107) 11/15/20 CO2 24 mmol/L (21-32) 11/15/20 BUN 15 mg/dl (7-18) 11/15/20 Creat 0.97 mg/dl (0.6-1.4) 11/15/20 Glucose Level 132 mg/dl (70-99) H 11/15/20 PT 9.9 Seconds (9.0-12.0) 11/15/20 INR 1.0 (0.9-1.1) 11/15/20 TSH 1.840 uIu/ml (0.300-4.500) 11/15/20 HA1c 6.6 % (4.5-5.6) H 11/15/20 Blood Type O Negative 11/15/20 Antibody Screen NEGATIVE 11/15/20 Testing Stress Test Date: 01/04/16 Type: exercise (Stress ECHO ) Resting EF: 55-60% Resting LV Function: normal Resting RWMA: + none Valvular Disease: no significant valvular disease Negative stress ECHO for myocardial ischemia at 88% MPHR. Normal EKG/ECHO response to stress. Mild/concentric LVH. RV- mild to moderately dilated. LA moderately dilated. RA mildly dilated.
[~2020-11-23 10:50] MED LIST changes: +BUPIVACAINE 0.5 % 5 MG/1 ML PF 10ML VIAL ONE; -CEFAZOLIN 3000MG 72.5 ML IV SCH; +LR 15ML/HR IV SCH; +LR 500ML BOLUS IV SCH; -LR 500ML BOLUS, THEN 15ML/HR IV SCH; -LR 60ML/HR IV SCH; -SCOPOLAMINE 1.5 MG TDSY TD SCH; +ceFAZolin 2000MG 2,000 MG/15 ML SYR IV SCH
[2020-11-23] MEDS ORDERED: LABETALOL HCL IV 5 MG/ML 20ML IV PRN (11:18)
[2020-11-23] MEDS ORDERED: ePHEDrine sulfate 50 MG/ML AMP IV PRN (11:18)
[2020-11-23] MEDS ORDERED: fentaNYL citrate 100 MCG/2 ML VIAL IV PRN (11:18)
[2020-11-23] MEDS ORDERED: PHENYLEPHRINE 100MCG/ML 5ML SYR IV PRN (11:18)
[2020-11-23] MEDS ORDERED: HYDROmorphone INJ 1 MG/ML SYRINGE IV PRN (11:18)
[2020-11-23] MEDS ORDERED: ONDANSETRON INJ 2 MG/ML 2 ML VIAL IV PRN ×2 (11:18→17:39)
[2020-11-23] MEDS ORDERED: ATROPINE SULFATE 0.1 MG/ML 10ML SYR IV PRN (11:18)
[2020-11-23] MEDS ORDERED: ROPIVACAINE 0.5% 5 MG/ML 30 ML VIAL ONE (11:19)
[2020-11-23] MEDS ORDERED: EPINEPHrine INJ 1 MG/ML AMP ONE ×2 (11:20→13:23)
--- NOTE | 2020-11-23 11:34 | History & Physical Bridge Note ---
Date of Service November 23, 2020 History & Physical Bridge Note I have examined the patient, reviewed the History & Physical and in the interval since the performance of the History & Physical I have noted the following changes of clinical significance: no changes noted
[2020-11-23] MEDS ORDERED: MIDAZOLAM HCL 1 MG/ML 2ML VIAL ONE ×2 (11:45→15:08)
[2020-11-23] MEDS ORDERED: fentaNYL citrate 100 MCG/2 ML VIAL ONE ×2 (11:45→16:13)
[2020-11-23] MEDS ORDERED: BUPIVACAINE 0.25% 30 ML VIAL ONE (13:23)
[2020-11-23] MEDS ORDERED: SODIUM CHLORIDE 0.9% PF 50 ML VIAL ONE (13:23)
[2020-11-23] MEDS ORDERED: VANCOMYCIN HCL 1000MG/20ML VIAL ONE (13:23)
[2020-11-23] MEDS ORDERED: BUPIVACAINE LIPOSOME 1.3% 266 MG/20 ML VIAL ONE (13:24)
[2020-11-23] MEDS ORDERED: PROPOFOL IV EMULSION 10 MG/ML 20 ML VIAL IV ONE ×4 (14:00→15:32)
[2020-11-23] MEDS ORDERED: ONDANSETRON INJ 2 MG/ML 2 ML VIAL ONE (16:27)
--- NOTE | 2020-11-23 17:03 | XRay Report ---
TWO VIEWS LEFT KNEE CLINICAL HISTORY: Postoperative examination. FINDINGS: AP and crosstable lateral portable views of the left knee are obtained. A left knee arthrop lasty with a long tibial stem is in near anatomic alignment. There has been undersurface remodeling o f the patella. No acute fracture is seen. There are expected postoperative changes around the knee in cluding skin clips, soft tissue edema, and subcutaneous gas. IMPRESSION: Expected postoperative changes status post left knee arthroplasty. No acute fracture is s een. ACT 112: Negative or not required by law. Electronically signed by: Richard Serrano M.D. 11/23/2020 5:02 PM
--- NOTE | 2020-11-23 17:07 | Operative Report ---
Post Operative Report Pre & Post Diagnosis Operation Date: 11/23/20 12:30 Pre-Op Diagnosis: Painful Left Total Knee Replacement with aseptic loosening of the tibial tray Post-Op Diagnosis: Painful Left Total Knee Replacement with aseptic loosening of the tibial tray I identified the patient and participated in the time-out.: Yes Procedure Operation Date: 11/23/20 12:30 Actual Procedures p Left Revision total knee replacement with tibial component revision. (Left) - Jer Gallegos MD Surgeon Jer Gallegos MD Computer Science Professor HAMILTON Alanis Estimated Blood Loss 200 Findings Consistent with Post-Op Diagnosis Operative findings revealed aseptic loosening of the tibial tray. Tray was grossly loose. There was a fracture of the medial till plateau with some fragmentation on the medial side. Some osteolysis medially as well. The femoral component was well fixed. Patella was well fixed. Fluids 1500 cc Specimens Right knee synovium sent for pathology which revealed less than 5 polys per high-power field and the actual pathology report was 0 polys per high-power field. 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 He did well for the first year. Just about 2 weeks ago he developed insidious onset of severe left knee pain and discomfort. He was seen in clinic and x-rays revealed a loose the tibial tray. There also appeared to be a slight fracture of medial till plateau. An infectious work-up which was done was negative for infection. The patient is indicated for revision of his tibial tray. Description of Procedure Operative implants consist of: 1. Biomet Vanguard III 60 size 79 revision tibial tray with a 15 x 120 mm stem with a 2.5 mm offset and a small cruciate wing. 2. 20 mm posterior stabilized polyethylene plus insert. The patient was taken to the operating, identified, placed on the operating table supine position but all contractors were properly padded. IV antibiotics tried by anesthesia team. A 6 spinal anesthetic and abductor canal block had provided holding area. Ellison catheter was placed in sterile fashion for left thigh turn was then placed in left lower extremities and prepped draped in usual sterile fashion. The left leg was elevated exsanguinated with use of an Esmarch interspace at 300 mmHg. An anterior approach to the left knee was then performed through longit udinal incision using the previous incision and extending it distally and proximally just a centimeter or 2. Sharp dissection was got through subcutaneous tissue down the extensor mechanism. A medial parapatellar arthrotomy incision was made. Some subperiosteal dissection was carried out medially. The fracture of the medial tibial plateau was easily identified. I did a complete synovectomy of the suprapatellar pouch as well as the medial and lateral gutters. Some the synovium was sent for pathology which revealed 0 polys per high-power field. We also sent some fluid for stat Gram stain and aerobic and anaerobic culture. I mobilized the soft tissues and then to bend the knee. The polyethylene was removed. The tibia subluxated anteriorly and the tibial tray was removed. I then very carefully removed all the cement from the proximal tibia. Once this was complete I examined the femur. The femur appeared well fixed. The patella appeared well fixed. We get began prepping at the tibia. The tibia was entered with the IM umesh and then we reamed up to a size 15. I really want to fix deep into his tibia so we extended this for the 120 mm offset stem. We reamed up to 15. The tibial cutting guide was placed and the proximal tibial cut was made. There was still a slight deficiency in the anterior medial aspect of the tibia from his previous fracture but the posterior side of the tibia had good bone support. I considered using a cone but I thought I would just be destroyed more bone and I thought I had pretty good bone support from the implant that he had so we elected not to do that. We prepared the tibia for a 2.5 mm offset stem and this was assembled. I then placed the stem and it fit nicely. We trialed the knee and a 20 mm insert fit most appropriately. Att ention drawn to place the permanent components. Nupathe all trial implants were removed. I irrigated the wound extensively. All fibrinous debris was removed. A double batch Palacos G cement was mixed with an additional gram of vancomycin. The metaphyseal portion of the implant was coated with cement and then the tibia was then cemented in place. I placed a trial insert and brought the knee out in full extension until cement hardened. We elect to place a 20 mm insert. Unfortunately, there were no PS a standard insert in the 18 or 20 so we had to use the PS plus. We placed a permanent PS plus insert. The knee was taken through range of motion patella tracked nicely with no thumbs test. Attention drawn toward closing. The wound was irrigated scope soft of pulsatile lavage solution. We did inject locally with 100 cc of combination of 20 of Exparel, 30 cc normal saline, 50 cc of quarter percent Marcaine with epinephrine. Patient did receive 1 g tranexamic acid. The tourniquet was let down for turn time 95 minutes. Hemostasis assured with electrocautery. Extensor mechanism then closed with combination 1 PDS suture #1 Vicryl suture in [id number] fashion. Extensor mechanism checked found to be intact with subcutaneous tissue then closed with 2 Dexon suture in a buried knot fashion skin was closed skin bev. Leg was then cleaned and dried and sterile dressing was Xeroform, 4 x 4's, sterile cast padding, Joey bandage were applied. Patient then transferred to the recovery room in stable condition. The patient tolerated procedure well and there are no complications. Cali Alanis, my physician administrative assistant front desk, was present for the entire procedure. His assistance was essential and required for appropriate patient positioning, prepping and draping, surgical exposure, performing the technical details of the operation, placement the implants, closure of the wound, and placement of the sterile bandage. I attest to the content of the Intraoperative Record and any orders documented therein. Any exceptions are noted below.
[2020-11-23] MEDS ORDERED: MAGNESIUM HYDROXIDE SUSP 30 ML UDC PO PRN (17:39)
[2020-11-23] MEDS ORDERED: GLUCAGON FOR INJ 1 MG VIAL SQ PRN (17:39)
[2020-11-23] MEDS ORDERED: NON-FORMULARY MEDICATION (Dulaglutide [Trulicity] 1.5 mg/0.5 mL pen injector) SQ SCH (17:39)
[2020-11-23] MEDS ORDERED: CARBOHYDRATES FOR HYPOGLYCEMIA PO PRN (17:39)
[2020-11-23] MEDS ORDERED: diphenhydrAMINE Capsule 25 MG CAP PO PRN (17:39)
[2020-11-23] MEDS ORDERED: TAMSULOSIN HCL 0.4 MG CAP PO PRN (17:39)
[2020-11-23] MEDS ORDERED: NON-FORMULARY MEDICATION (Cpap Supplies misc) SCH (17:39)
[2020-11-23] MEDS ORDERED: bisacodyL 10 MG SUPP PR PRN (17:39)
[2020-11-23] MEDS ORDERED: METOCLOPRAMIDE HCL INJ 5 MG/ML 2 ML VIAL IV PRN (17:39)
[2020-11-23] MEDS ORDERED: LORazepam 0.5 MG TAB PO PRN (17:39)
[2020-11-23] MEDS ORDERED: NALOXONE HCL 0.4 MG/1 ML VIAL/CARP IV PRN (17:39)
[2020-11-23] MEDS ORDERED: GLUCOSE 10 TABS/TUBE PO PRN (17:39)
[2020-11-23] MEDS ORDERED: PHARMACY GLYCEMIC MGMT CONSULT PRN (17:39)
[2020-11-23] MEDS ORDERED: DEXTROSE 50% 50 ML SYRINGE IV PRN (17:39)
[2020-11-23] MEDS ORDERED: GLUCOSE 40% GEL 15 GM TUBE PO PRN (17:39)
[2020-11-23] MEDS ORDERED: ALUMINUM/MAGNESIUM SUSP 30 ML UDC PO PRN (17:39)
[2020-11-23] MEDS ORDERED: NON-FORMULARY MEDICATION (Sildenafil 50 mg tablet) PO PRN (17:39)
[2020-11-23] MEDS ORDERED: HYDROmorphone INJ 0.5 MG/0.5 ML SYR IV PRN (17:39)
--- NOTE | 2020-11-23 18:17 | Anesthesiology Progress Note ---
Date of Service November 23, 2020 Anesthesia Post Procedure Vital Signs Vital Signs: Temp Pulse Pulse Resp BP BP Pulse Ox 11/23/20 17:50 36.7 C 86 16 149/84 H 100 11/23/20 17:05 77 16 132/82 99 11/23/20 16:55 36.4 C L 78 16 136/87 99 11/23/20 16:45 79 16 143/89 H 100 11/23/20 16:35 36.6 C 93 H 16 146/85 H 100 11/23/20 11:44 37.5 C 101 H 18 133/89 94 Transfer of Care Handoff Completed per policy Notes Mental Status: alert / awake / arousable and participated in evaluation Patient Amnestic to Procedure: Yes Nausea / Vomiting: adequately controlled Pain: adequately controlled Airway Patency, RR, SpO2: stable & adequate BP & HR: stable & adequate Hydration State: stable & adequate Neuraxial Anesthesia: was administered and sensory block is resolving Anesthetic Complications: no major complications apparent and Pt Satisfied with anesthetic care
[2020-11-23] MEDS: SODIUM CHLORIDE 0.9% 1000ML 1,000 ML IV SCH (18:26)
[2020-11-23] MEDS: KETOROLAC 30 MG/ML VIAL IV SCH (18:37)
[2020-11-23] MEDS: ASCORBIC ACID 500 MG TAB PO SCH (18:37)
[2020-11-23] MEDS ORDERED: INSULIN GLARGINE SOLOSTAR 100 UNITS/ML 3 ML PEN SC SCH (21:00)
[2020-11-23] MEDS ORDERED: SENNA 8.6 MG TAB PO SCH (21:00)
[2020-11-23] MEDS: DOCUSATE SODIUM 100 MG CAP PO SCH (21:17)
[2020-11-23] MEDS: ASPIRIN 81 MG ECTAB PO SCH (21:17)
[2020-11-23] MEDS: GABAPENTIN 600 MG TAB PO SCH (21:18)
[2020-11-23] MEDS: gemfibroziL 600 MG TAB PO SCH (21:18)
[2020-11-23] MEDS: ACETAMINOPHEN 500 MG TAB PO SCH (21:19)
[2020-11-23] MEDS: ceFAZolin 2000MG 2,000 MG/15 ML SYR IV SCH (21:19)
[2020-11-23] MEDS: TAPENTADOL HCL ER 50 MG TABCR PO SCH (21:24)
[2020-11-23] MEDS: INSULIN ASPART 100 UNITS/ML 3 ML PEN SC SCH (21:25)
[2020-11-23] MEDS ORDERED: TRANEXAMIC ACID / 0.7% NACL 1,000 MG/100 ML BAG IV SCH (22:30)
--- NOTE | 2020-11-23 23:07 | Electrocardiogram Report ---
Test Reason : Blood Pressure : / mmHG Vent. Rate : 108 BPM Atrial Rate : 108 BPM P-R Int : 164 ms QRS Dur : 090 ms QT Int : 344 ms P-R-T Axes : 036 011 022 degrees QTc Int : 460 ms Sinus tachycardia Inferior infarct , age undetermined Abnormal ECG When compared with ECG of 22-AUG-2019 12:30, Inferior infarct is now Present ST no longer elevated in Inferior leads Confirmed by Emeka Ledezma ([id number]) on 11/23/2020 11:06:37 PM Referred By: Jer Gallegos Confirmed By:Emeka Ledezma
[2020-11-24] MEDS: oxyCODONE HCL IR 5 MG TAB (IMMEDIATE RELEASE) PO PRN ×2 (00:08→06:15)
[2020-11-24] MEDS: KETOROLAC 30 MG/ML VIAL IV SCH ×2 (00:09→04:55)
[2020-11-24] MEDS: SODIUM CHLORIDE 0.9% 1000ML 1,000 ML IV SCH (02:46)
[2020-11-24] MEDS: ACETAMINOPHEN 500 MG TAB PO SCH (04:54)
[2020-11-24] MEDS: ceFAZolin 2000MG 2,000 MG/15 ML SYR IV SCH (06:15)
[2020-11-24 06:26] LABS: Hematocrit (blood only) 38.7 % (42-52); Hemoglobin 13.7 g/dL (14.0-18.0); Mean Corpuscular Hemoglobin 32.2 pg (25-34); Mean Corpuscular Hgb Conc 35.4 g/dL (32-36); Mean Corpuscular Volume 90.8 fL (80-100); Mean Platelet Volume 8.7 fL (7.4-10.4); Platelet Count 229 K/uL (130-400); RDW Coefficient of Variation 12.9 % (11.5-14.5); RDW Standard Deviation 42.7 fL (36.4-46.3); Red Blood Count 4.26 M/uL (4.7-6.1); White Blood Count 8.89 K/uL (4.8-10.8)
[2020-11-24 07:05] LABS: BUN Creatinine Ratio 17.1 (10-20); Calcium 8.3 mg/dl (8.5-10.1); Creatinine Clr Calc Pharmacy 154.2 ml/min; Est GFR (African American) 117.7 ml/min; Est GFR (Non-African American) 101.6 ml/min
[2020-11-24] MEDS: gemfibroziL 600 MG TAB PO SCH (08:18)
[2020-11-24] MEDS: GABAPENTIN 600 MG TAB PO SCH (08:18)
[2020-11-24] MEDS: DOCUSATE SODIUM 100 MG CAP PO SCH (08:19)
[2020-11-24] MEDS: ASPIRIN 81 MG ECTAB PO SCH (08:21)
[2020-11-24] MEDS: ASCORBIC ACID 500 MG TAB PO SCH (08:21)
[2020-11-24] MEDS: TAPENTADOL HCL ER 50 MG TABCR PO SCH (08:39)
[2020-11-24] MEDS: INSULIN ASPART 100 UNITS/ML 3 ML PEN SC SCH (08:57)
[2020-11-24] MEDS ORDERED: MULTIVITAMIN TAB PO SCH (09:00)
[2020-11-24] MEDS ORDERED: DULoxetine HCL 60 MG CAP PO SCH (09:00)
--- NOTE | 2020-11-24 09:45 | Progress Notes ---
DATE: 11/24/2020. SUBJECTIVE: A 50-year-old gentleman postoperative day 1 from a left revision of the tibial tray for aseptic loosening. He is doing well this morning. At rest, not a lot of pain, but when he is up and about, he rates his pain as about a 5/10. No chest pain, no shortness of breath. Not feeling dizzy or lightheaded. OBJECTIVE: VITAL SIGNS: Temperature 37.3. Vital signs are stable. GENERAL: Physical examination shows a large middle-aged male. He is sitting up on his bedside chair, looks really comfortable. LUNGS: Clear to auscultation. HEART: Regular rate and rhythm. ABDOMEN: Soft, nontender, nondistended. EXTREMITIES: Grossly neurovascularly intact except as follows: Examination of the left leg reveals the leg to be well aligned. The dressing has been reinforced for some slight bloody drainage. He can dorsiflex and plantarflex his foot appropriately. Toes are pink with brisk refill. LABORATORY DATA: Hemoglobin 13.7. Hematocrit 38.7. Electrolytes are stable. ASSESSMENT: A 50-year-old gentleman postoperative day 1 from a revision of a tibial tray for aseptic loosening. He also had some fractures medially. He is doing pretty well. PLAN: 1. DVT prophylaxis including thigh-high TEDs, SCDs, and aspirin twice a day. 2. PT, OT, weightbear as tolerated. Left total knee protocol. 3. Pain control, doing okay with current pain regimen. 4. Disposition: We will see how therapy goes today. He is hoping to go home. If his pain is controlled and he does well in therapy, we will get him home this afternoon. Job ID: [id number] [facility]
--- NOTE | 2020-11-24 10:23 | Pharmacy Report ---
Pharmacy Glycemic Short Note 2 - Date of Service November 24, 2020 - Glycemic Short BSG Results (Last 24 hours): 11/23/20 11/23/20 11/23/20 11:33 16:35 17:35 Glucose POC Glucose 111 H 99 99 11/23/20 11/24/20 11/24/20 21:04 06:06 08:12 Glucose 105 H POC Glucose 168 H 135 H OUTPATIENT ANTIDIABETIC REGIMEN: * Jardiance 25 mg PO HS * Trulicity 1.5 mg SC Weekly * Lantus 36 units SC HS * HbA1c = 6.6% (11/15/20) ASSESSMENT: * 50 yo M admitted s/p left total knee arthroplasty. Pharmacy was consulted postoperatively to assist with inpatient glycemic management. No steroids were received perioperatively. * Postop BSGs were 99-168 mg/dL. Patient was started on basal insulin based on weight and stress of two which was a 33% reduction in his home dose. Novolog was based on a weight and stress of two as well. * Fasting BSG was 135 mg/dL this AM which is at goal * No changes to regimen today * Likely to be discharged later today PLAN FOR INPATIENT GLYCEMIC CONTROL: * Hold outpatient oral diabetes medications * Basal insulin * Lantus 24 units SQ HS * Bolus insulin * NovoLog per scale ACHS or Q6hrs while NPO * Goal Range: Low 110 mg/dL - High 140 mg/dL * Correction Factor: 20 mg/dL/unit * Nutritional / Prandial insulin per carb ratio of 1 unit per 6 grams CHO consumed PLAN FOR DISCHARGE: * HbA1c is at goal for this patient. Continue outpatient regimen of Jardiance, Trulicity and Lantus upon discharge.
--- NOTE | 2020-12-01 10:30 | Discharge Summary ---
Date of Service December 01, 2020 Discharge Data Procedures Performed Operation Date: 11/23/20 12:30 Actual Procedures p Left Revision Tibia Tray(Left) - Jer Gallegos MD Hospital Course (1) Status post revision of total replacement of left knee: This is a 50 year old patient admitted on 11/23/20 and underwent revision of his tibial component. He tolerated the procedure well and there were no complications. Transferred to the PACU post op and later to the orthopedic floor for further care. He was given ancef for antibiotic prophylaxis. He was also given SRIKANTH stockings, SCDs, and aspirin for DVT prophylaxis. Hemoglobin, hematocrit, and vital signs were monitored during his hospital stay and remained stable. Did not require any blood transfusions. There were no complications during his hospital stay. By post op day #1 the patient was tolerating a diabetic diet, pain was reasonably controlled with oral pain medicine, and he was participating in physical therapy. On post op day #1 the patient was discharged home. He was given printed discharge instructions including prescriptions for extra strength tylenol, aspirin, cefadroxil, and oxycodone. Continue physical therapy, weight bearing as tolerated. Continue SRIKANTH stockings. Follow up approximately 2 weeks post op or sooner if there are problems or concerns. Coding Level of Care Code None Diagnoses Status post revision of total replacement of left knee Z96.652
== END 2020-11-24 11:35 | disposition home or self-care (01) ==
LOC: ASU 10:50 → 3E 10:50